=== PATIENT | male | born 1945 | race African-American/Black ===

== ENCOUNTER 2016-11-28 22:24 | Emergency (ER) | payer OTHER ==
[~2016-11-28] VITALS: Ht 172.7 cm; Wt 95.0 kg
[~2016-11-28 22:24] MED LIST: BACT800T5 PO; CEPH500C3 PO; LISI-363 PO; MELO7.5T PO
[2016-11-28 22:26] VITALS: BP 149/85; PULSE 109; RESP 16; TEMP 98.2; O2SAT 97
[2016-11-28] MEDS ORDERED: METO25TA3 PO (22:50)
[2016-11-28] MEDS ORDERED: ALLO100T PO (22:50)
[2016-11-28] MEDS ORDERED: LOSA25TA PO (22:50)
[2016-11-28] MEDS ORDERED: AMLO5TAB2 PO (22:50)
[2016-11-28] MEDS ORDERED: SIMV40TA PO (22:50)
--- NOTE | 2016-11-28 23:07 | PD ---
HPI Chief Complaint: Flank/Kidney Pain Time Seen by Provider: 23:04 Travel History International Travel<30 days: No Contact w/Intl Traveler<30days: No Traveled to known affect area: No History of Present Illness HPI 70-year-old male presents to the emergency department by private transportation for complaint of 5 days of left flank pain worsened by movement. Patient denies bladder or bowel dysfunction. Patient denies abdominal pain. There is been no chest pain or shortness of breath. Patient has history of hypertension and diabetes. Patient is a nonsmoker. Patient rates pain 10 over 10 intensity. Patient is taking no medication for symptom relief. Patient's had no bladder or bowel dysfunction. Patient denies saddle anesthesia. Patient denies lower extremity numbness tingling or weakness. Patient has noted that symptoms relieve after urination and has noted increased urine output. Blood sugars have been well-controlled. PFSH Past Medical History Narrative Medical Hypertension dyslipidemia diabetes arthritis no tobacco use nursing notes reviewed Arthritis: Yes Asthma: No Autoimmune Disease: No Blood Disorders: No Anxiety: No Depression: No Heart Rhythm Problems: No Cancer: No Cardiovascular Problems: Yes High Cholesterol: Yes Chemotherapy: No Chest Pain: No Congestive Heart Failure: No COPD: No Cerebrovascular Accident: No Diabetes: Yes Patient Takes Glucophage: No (11/28/2016 2200) Diminished Hearing: No Endocrine: No GERD: No Glaucoma: No Genitourinary: No Headaches: No Hepatitis: No Hiatal Hernia: No Hypertension: Yes Kidney Stones: No Musculoskeletal: No Neurologic: No Respiratory: Yes Myocardial Infarction: No Radiation Therapy: No Renal Failure: No Seizures: No Sickle Cell Disease: No Sleep Apnea: No Thyroid Disease: No Ulcer: No Tetanus Vaccination: Unknown Influenza Vaccination: No Past Surgical History Abdominal Surgery: No AICD: No Arteriovenous Shunt: No Cardiac Surgery: No Ear Surgery: No Endocrine Surgery: No Eye Surgery: No Genitourinary Surgery: No Gynecologic Surgery: No Insulin Pump: No Joint Replacement: No Oral Surgery: No Pacemaker: No Thoracic Surgery: No Social History Alcohol Use: No Tobacco Use: No Substance Use: No Allergies-Medications (Allergen,Severity, Reaction): Coded Allergies: No Known Allergies (Verified , 11/28/16) Reported Meds & Prescriptions Reported Meds & Active Scripts Active Reported Amlodipine (Amlodipine Besylate) 5 Mg Tab 5 Mg PO DAILY Simvastatin 40 Mg Tab 40 Mg PO HS Allopurinol 100 Mg Tab 100 Mg PO DAILY Metoprolol Tartrate 25 Mg Tab 25 Mg PO DAILY Losartan (Losartan Potassium) 25 Mg Tab 12.5 Mg PO DAILY Review of Systems Except as stated in HPI: all other systems reviewed are Neg Physical Exam Narrative GENERAL: Well-developed well-nourished pleasant male in no acute distress no respiratory distress SKIN: Warm and dry. HEAD: Normocephalic. EYES: No scleral icterus. No injection or drainage. NECK: Supple, trachea midline. No JVD or lymphadenopathy. CARDIOVASCULAR: Regular rate and rhythm without murmurs, gallops, or rubs. RESPIRATORY: Breath sounds equal bilaterally. No accessory muscle use. GASTROINTESTINAL: Abdomen soft, non-tender, nondistended. MUSCULOSKELETAL: No cyanosis, or edema. Radial and dorsalis pedis pulses 2+ to palpation BACK: Nontender without obvious deformity. Increased pain to the left lower back with bilateral leg raising. Sensory exam intact. Motor 5 over 5. DTRs 2 + and equal without clonus No CVA tenderness. Data Data Last Documented VS Vital Signs Date Time Temp Pulse Resp B/P (MAP) Pulse Ox O2 Delivery O2 Flow Rate FiO2 11/28/16 22:50 94 15 11/28/16 22:26 98.2 149/85 (106) 97 Room Air Orders Orders Complete Blood Count With Diff (11/28/16 23:04) Basic Metabolic Panel (Bmp) (11/28/16 23:04) Urinalysis - C+S If Indicated (11/28/16 23:04) Ct Abd/Pel W/O Iv Contrast (11/28/16 23:04) Ecg Monitoring (11/28/16 23:04) Iv Access Insert/Monitor (11/28/16 23:04) Sodium Chloride 0.9% Flush (Ns Flush) (11/28/16 23:15) Ketorolac Inj (Toradol Inj) (11/29/16 00:00) Prednisone (Deltasone) (11/29/16 00:00) Labs Laboratory Tests Test 11/28/16 23:10 11/28/16 23:35 White Blood Count 10.0 TH/MM3 Red Blood Count 3.83 MIL/MM3 Hemoglobin 11.9 GM/DL Hematocrit 37.1 % Mean Corpuscular Volume 96.7 FL Mean Corpuscular Hemoglobin 31.0 PG Mean Corpuscular Hemoglobin Concent 32.1 % Red Cell Distribution Width 14.7 % Platelet Count 214 TH/MM3 Mean Platelet Volume 8.7 FL Neutrophils (%) (Auto) 50.0 % Lymphocytes (%) (Auto) 34.0 % Monocytes (%) (Auto) 12.4 % Eosinophils (%) (Auto) 2.8 % Basophils (%) (Auto) 0.8 % Neutrophils # (Auto) 5.0 TH/MM3 Lymphocytes # (Auto) 3.4 TH/MM3 Monocytes # (Auto) 1.2 TH/MM3 Eosinophils # (Auto) 0.3 TH/MM3 Basophils # (Auto) 0.1 TH/MM3 CBC Comment DIFF FINAL Differential Comment Blood Urea Nitrogen 20 MG/DL Creatinine 1.72 MG/DL Random Glucose 111 MG/DL Calcium Level 9.0 MG/DL Sodium Level 147 MEQ/L Potassium Level 3.8 MEQ/L Chloride Level 110 MEQ/L Carbon Dioxide Level 27.6 MEQ/L Anion Gap 9 MEQ/L Estimat Glomerular Filtration Rate 48 ML/MIN Urine Color YELLOW Urine Turbidity CLEAR Urine pH 5.0 Urine Specific [place] 1.017 Urine Protein NEG mg/dL Urine Glucose (UA) NEG mg/dL Urine Ketones NEG mg/dL Urine Occult Blood NEG Urine Nitrite NEG Urine Bilirubin NEG Urine Urobilinogen LESS THAN 2.0 MG/DL Urine Leukocyte Esterase NEG Urine RBC 1 /hpf Urine WBC 3 /hpf Urine Hyaline Casts 1 /lpf Urine Mucus FEW /lpf Microscopic Urinalysis Comment CULT NOT INDICATED MDM Medical Decision Making Medical Screen Exam Complete: Yes Emergency Medical Condition: Yes Medical Record Reviewed: Yes Interpretation(s) UA: wnl Last Impressions Abdomen/Pelvis CT 11/28/16 9380 Signed Impressions: Service Date/Time: Monday, November 28, 2016 23:16 - CONCLUSION: 1. No acute findings on abdomen and pelvic CT. Colonic diverticulosis. No renal calculi or obstructive uropathy. Clayton Elliott MD CBC & BMP Diagram 11/28/16 23:10 Calcium Level 9.0 Vital Signs Date Time Temp Pulse Resp B/P (MAP) Pulse Ox O2 Delivery O2 Flow Rate FiO2 11/28/16 22:50 94 15 11/28/16 22:26 98.2 109 16 149/85 (106) 97 Room Air Differential Diagnosis Sciatica, musculoskeletal pain, HNP, UTI, renal colic Narrative Course IV access obtained specimens collected and sent for resulting CT kidney stone protocol ordered Diagnosis Primary Impression: Sciatica Referrals: Primary Care Physician call for appointment Patient Instructions: General Instructions Additional Instructions: Take medication as prescribed Increase fluid hydration monitor blood sugars closely while taking steroid medication follow up with primary care provider call office on Wednesday Return to the emergency department for any concerns or change in condition Med/Other Pt SpecificInfo: Prescription(s) given Scripts Oxycodone-Acetaminophen (Percocet) 5-325 mg Tab 1 TAB PO Q6H Y for PAIN, #12 TAB 0 Refills Prov: Brinda Mccormack MD 11/29/16 Methylprednisolone Dosepak (Medrol Dosepak) 4 Mg Dspk 4 MG PO DIRECTED, #1 DSPK 0 Refills Per Pharmacist direction Prov: Brinda Mccormack MD 11/29/16 Disposition: 01 DISCHARGE HOME Condition: Stable Brinda Mccormack MD Nov 28, 2016 23:07
[2016-11-28] MEDS ORDERED: SODIUM CHLORIDE 0.9% FLUSH 10 ML FLUSH IVF PRN (23:15)
[2016-11-28 23:19] LABS: BASOPHIL # 0.1 TH/MM3 (0-0.2); BASOPHIL % 0.8 % (0.0-2.0); EOSINOPHIL # 0.3 TH/MM3 (0-0.4); EOSINOPHIL % 2.8 % (0.0-4.0); HEMATOCRIT 37.1 % (39.0-51.0); HEMO FLAGS DIFF FINAL; LYMPHOCYTE # 3.4 TH/MM3 (1.0-4.8); MEAN CELL VOLUME 96.7 FL (80.0-100.0); MEAN CORPUSCULAR HGB CONC 32.1 % (32.0-36.0); MONO % 12.4 % (0.0-8.0); PLATELET COUNT 214 TH/MM3 (150-450); RED BLOOD COUNT 3.83 MIL/MM3 (4.50-5.90); RED CELL DISTRIBUTION WIDTH 14.7 % (11.6-17.2)
--- NOTE | 2016-11-28 23:33 | RADRPT ---
EXAM DATE/TIME: 11/28/2016 23:16 [facility] COMPARISON: No previous studies available for comparison. INDICATIONS : Left flank pain X 5 days. ORAL CONTRAST: No oral contrast ingested. RADIATION DOSE: 12.68 CTDIvol (mGy) MEDICAL HISTORY : Hypertension. Cardiovascular disease Diabetes mellitus type 2. SURGICAL HISTORY : Total knee replacement, left. Total knee replacement, right.back surgery ENCOUNTER: Initial ACUITY: 4 - 6 days PAIN SCALE: 7/10 LOCATION: Left flank TECHNIQUE: Volumetric scanning of the abdomen and pelvis was performed. Using automated exposure control and ad justment of the mA and/or kV according to patient size, radiation dose was kept as low as reasonably achievable to obtain optimal diagnostic quality images. DICOM format image data is available electro nically for review and comparison. FINDINGS: Lung bases clear. No acute findings in the liver, spleen, adrenals or pancreas. Small bilateral renal cysts. No renal calculi or obstructive uropathy. No ureteral or bladder calculi are seen. There are numerous gallstones in the gallbladder. No biliary ductal dilatation. There is colonic diverticulosis, especially on the left side without diverticulitis. No acute bony ab normalities. No pelvic masses or adenopathy. CONCLUSION: 1. No acute findings on abdomen and pelvic CT. Colonic diverticulosis. No renal calculi or obstructiv e uropathy. Clayton Elliott MD on November 28, 2016 at 23:27 Board Certified Radiologist. This report was verified electronically.
[2016-11-28 23:43] LABS: BICARBONATE 27.6 MEQ/L (21.0-32.0); POTASSIUM 3.8 MEQ/L (3.5-5.1)
[2016-11-29] MEDS ORDERED: KETOROLAC TROMETHAMINE 30 MG/ML (IVP) VIAL IV PUSH ONE
[2016-11-29] MEDS ORDERED: predniSONE 50 MG TAB PO ONE
[2016-11-29 00:10] LABS: BLOOD, URINE NEG (NEG); COMMENT (UR) CULT NOT INDICATED; CULTURE IF INDICATED CULT NOT INDICATED; GLUCOSE,URINE NEG (NEG); HYALINE CAST, URINE 1 /lpf (RARE); KETONE, URINE NEG (NEG); MUCUS URINE FEW /lpf (OCC); NITRITE,URINE NEG (NEG); URINE COLOR YELLOW (YELLW/STRAW)
[2016-11-29] MEDS ORDERED: MEDR4PAK PO (00:31)
[2016-11-29] MEDS ORDERED: PERC5TAB12 PO (00:31)
== END 2016-11-29 00:48 | disposition home or self-care (01) ==
LOC: NEPC 22:24
DX: M54.30 Sciatica, unspecified side (principal)
CPT/HCPCS: 74176; 80048; 81001; 85025; 96374; 99285; J1885; J7512